=== PATIENT | male | born 1940 | race Caucasian/White ===

== ENCOUNTER 2018-08-20 09:10 | Observation (INO) | payer MEDICARE ==
[2018-08-20 09:43] LABS: ADD MAN DIFF? NO
[2018-08-20 09:51] LABS: BASOPHIL # 0.1 10^3/ul (0.0-0.1); BASOPHILS % 1.3 % (0.0-2.0); EOSINOPHILS # 0.1 10^3/ul (0.0-0.5); EOSINOPHILS % 1.2 % (0.0-7.0); HEMATOCRIT 37.2 % (42.0-52.0); HEMOGLOBIN 11.9 g/dl (14.0-18.0); LYMPHOCYTES # 0.7 10^3/ul (0.8-2.9); LYMPHOCYTES % 10.9 % (15.0-51.0); MEAN CORPUSCULAR HEMOGLOBIN 29.2 pg (29.0-33.0); MEAN CORPUSCULAR VOLUME 91.4 fl (82.0-101.0); MEAN PLATELET VOLUME 10.3 fl (7.4-10.4); MONOCYTE # 0.4 10^3/ul (0.3-0.9); MONOCYTES % 6.3 % (0.0-11.0); NEUTROPHIL # 4.8 10^3/ul (1.6-7.5); NEUTROPHILS % 79.8 % (39.0-77.0); PLATELET COUNT 379 10^3/UL (140-415); RED BLOOD COUNT 4.07 10^6/ul (4.70-6.10); RED CELL DISTRIBUTION WIDTH 14.6 % (11.5-14.5)
[2018-08-20 10:04] LABS: ANION GAP 10 (5-13); BLOOD UREA NITROGEN 21 mg/dl (7-20); CALCIUM 8.8 mg/dl (8.4-10.2); CARBON DIOXIDE 28 mmol/L (21-31); CHLORIDE 100 mmol/L (97-110); CREATININE 1.16 mg/dl (0.61-1.24); GLUCOSE 111 mg/dl (70-220); POTASSIUM 3.9 mmol/L (3.5-5.1); SODIUM 138 mmol/L (135-144)
[2018-08-20 10:08] LABS: INR 0.94; PROTIME 12.7 Sec (11.9-14.9)
[2018-08-20 10:09] LABS: PARTIAL THROMBOPLASTIN TIME 29.9 Sec (23.0-35.0)
[2018-08-20] MEDS: LIDOCAINE 2% 20 ML UROJET SYRINGE MM (10:09)
[2018-08-20 10:50] LABS: ADD UMIC YES; UR CLARITY BLOODY (CLEAR); UR COLOR RED (YELLOW); URINE SPECIFIC GRAVITY (Dip) 1.015 (1.003-1.030)
[2018-08-20 10:51] LABS: UR BILIRUBIN (Dip) NEGATIVE (NEGATIVE); UR BLOOD (Dip) 3+ mg/dL (NEGATIVE); UR GLUCOSE (Dip) NEGATIVE (NEGATIVE); UR KETONES (Dip) TRACE mg/dL (NEGATIVE); UR NITRITE (Dip) NEGATIVE (NEGATIVE); UR TOTAL PROTEIN (Dip) 2+ mg/dl (NEGATIVE)
[2018-08-20 10:52] LABS: UR ASCORBIC ACID NEGATIVE (NEGATIVE); UR LEUKOCYTE ESTERASE (Dip) NEGATIVE Leu/ul (NEGATIVE); UR UROBILINOGEN (Dip) 0.2 E.U./dL mg/dL (NEGATIVE); URINE RBCS >200 /HPF (0)
[2018-08-20 10:53] LABS: UR BACTERIA OCCASIONAL /HPF (NONE SEEN); UR SQUAMOUS EPITHELIAL CELL RARE /HPF (FEW)
[2018-08-20] MEDS ORDERED: ONDANSETRON 4 MG INJ IV ×2 (11:30→12:00)
[2018-08-20] MEDS ORDERED: ACETAMINOPHEN 325 MG TAB PO (11:30)
[2018-08-20] MEDS ORDERED: ALBUTEROL/IPRATROPIUM (NEB) 3 ML AMP HHN (12:00)
[2018-08-20] MEDS ORDERED: NACL 0.9% 3 ML SYG IV (12:00)
[2018-08-20] MEDS ORDERED: NITROGLYCERIN (SL) 0.4 MG TAB SL (12:00)
[2018-08-20] MEDS ORDERED: morphine 2 MG INJ IV (12:00)
[2018-08-20] MEDS ORDERED: LORAZEPAM 0.5 MG TAB PO (12:30)
[2018-08-20] MEDS: SOD CHLORIDE 0.45% 1,000 ML IV (12:30)
[2018-08-20] MEDS: AMLODIPINE 5 MG TAB PO (13:26)
[2018-08-20 13:50] LABS: FREE T4 (FREE THYROXINE) 1.15 ng/dl (0.78-2.44)
[2018-08-20] MEDS: MAGNESIUM HYDROXIDE 30ML CUP PO (16:37)
[2018-08-20] MEDS: HYDROCODONE/APAP (5/325) TAB PO (16:37)
[2018-08-20] MEDS: hydrALAzine 20 MG INJ IV (21:48)
[2018-08-20] MEDS: DOCUSATE SODIUM 100 MG CAP PO (22:23)
[2018-08-20] MEDS: ACETAMINOPHEN 325 MG TAB PO (22:27)
[2018-08-21 05:58] LABS: ADD MAN DIFF? NO
[2018-08-21] MEDS: PANTOPRAZOLE 40 MG INJ IV (06:00)
[2018-08-21 06:11] LABS: WHITE BLOOD COUNT 5.9 10^3/ul (4.8-10.8)
[2018-08-21 06:11] LABS: BASOPHIL # 0.1 10^3/ul (0.0-0.1); BASOPHILS % 1.2 % (0.0-2.0); EOSINOPHILS # 0.2 10^3/ul (0.0-0.5); EOSINOPHILS % 2.5 % (0.0-7.0); HEMATOCRIT 33.1 % (42.0-52.0); HEMOGLOBIN 10.5 g/dl (14.0-18.0); LYMPHOCYTES % 16.9 % (15.0-51.0); MEAN CORPUSCULAR HGB CONC 31.7 g/dl (32.0-37.0); MEAN CORPUSCULAR VOLUME 91.4 fl (82.0-101.0); MEAN PLATELET VOLUME 9.7 fl (7.4-10.4); MONOCYTE # 0.6 10^3/ul (0.3-0.9); MONOCYTES % 10.3 % (0.0-11.0); NEUTROPHIL # 4.1 10^3/ul (1.6-7.5); NEUTROPHILS % 68.6 % (39.0-77.0); PLATELET COUNT 327 10^3/UL (140-415); RED BLOOD COUNT 3.62 10^6/ul (4.70-6.10); RED CELL DISTRIBUTION WIDTH 14.7 % (11.5-14.5)
[2018-08-21 06:32] LABS: CHOLESTEROL 180 mg/dl (100-200)
[2018-08-21 06:32] LABS: CHOL/HDL RATIO 2.7 RATIO; HDL CHOLESTEROL 66 mg/dl (31-75); LDL CHOLESTEROL,CALCULATED 99 mg/dl; TRIGLYCERIDES 76 mg/dl (0-149)
[2018-08-21 06:43] LABS: ANION GAP 8 (5-13); BLOOD UREA NITROGEN 29 mg/dl (7-20); CALCIUM 8.6 mg/dl (8.4-10.2); CARBON DIOXIDE 31 mmol/L (21-31); CHLORIDE 100 mmol/L (97-110); CREATININE 1.57 mg/dl (0.61-1.24); GLUCOSE 101 mg/dl (70-220); MAGNESIUM 2.8 mg/dl (1.7-2.5); PHOSPHORUS 4.3 mg/dl (2.5-4.9); POTASSIUM 4.2 mmol/L (3.5-5.1); SODIUM 139 mmol/L (135-144)
[2018-08-21] MEDS: AMLODIPINE 5 MG TAB PO (08:03)
[2018-08-21] MEDS: ACETAMINOPHEN 325 MG TAB PO (09:46)
== END 2018-08-21 14:56 | disposition home or self-care (01) ==
LOC: E/R 09:10 → PP2 11:19
DX: A49.02 Methicillin resistant Staphylococcus aureus infection, unspecified site (principal); R31.9 Hematuria, unspecified; C61 Malignant neoplasm of prostate; I10 Essential (primary) hypertension
CPT/HCPCS: 80048; 80061; 81001; 83036; 83735; 84100; 84153; 84154; 84439; 84443; 85025; 85610; 85730; 87086; 90686; 97161; 99217; 99285-25; G0378